=== PATIENT | female | born 1950 | race Caucasian/White ===

== ENCOUNTER → 2020-03-13 12:56 | Outpatient (CLI) | payer BC, SELFPAY ==
--- NOTE | ~2020-03-13 | US_ITS ---
EXAMINATION: US right upper quadrant DATE: 03/13/2020 13:17 INDICATION: Disease of pancreas, unspecified. TECHNIQUE: Multiple grayscale and Doppler ultrasound images of the abdomen were obtained. COMPARISON: None FINDINGS: There is a 3.3 x 2.1 x 1.8 cm hypoechoic mass in the pancreas. The liver is normal without focal lesion. No liver surface nodularity. There is normal flow in main portal vein. The gallbladder is absent. The common duct is normal and measures 10 mm. IMPRESSION: 1. 3.3 cm mass in the pancreas suspicious for neoplasm. Abdomen CT or MRI without and with contrast i s recommended. Reviewed, dictated and finalized at location [facility] IMPRESSION: 1. 3.3 cm mass in the pancreas suspicious for neoplasm. Abdomen CT or MRI witho ut and with contrast is recommended.
== END ==
DX: K86.9 Disease of pancreas, unspecified (principal)
CPT/HCPCS: 76705

== ENCOUNTER → 2020-05-20 10:55 | Outpatient (CLI) | payer BC, SELFPAY ==
--- NOTE | ~2020-05-20 | US_ITS ---
EXAMINATION: US right upper quadrant DATE: 05/20/2020 11:26 INDICATION: Pancreatic mass. TECHNIQUE: Multiple grayscale and Doppler ultrasound images of the abdomen were obtained. COMPARISON: Ultrasound 03/13/2020 FINDINGS: There is a 3.6 x 2.2 x 1.9 cm hypoechoic mass in the head of the pancreas. The liver is nor mal without focal lesion. There is normal flow in main portal vein. The gallbladder is absent. The co mmon duct is normal and measures 9 mm. IMPRESSION: 1. 3.6 cm pancreatic mass that measured 3.3 cm on 03/13/2020. This finding is suspicious for neoplasm. Abdomen CT or MRI without and with contrast is recommended. Reviewed, dictated and finalized at location A. IMPRESSION: 1. 3.6 cm pancreatic mass that measured 3.3 cm on 03/13/2020. This finding is zhou spicious for neoplasm. Abdomen CT or MRI without and with contrast is recommend ed.
== END ==
DX: K86.9 Disease of pancreas, unspecified (principal)
CPT/HCPCS: 76705